=== PATIENT | male | born 1960 | race Hispanic/Latino ===

== ENCOUNTER 2020-05-14 19:33 | Emergency (ER) | payer BC ==
[~2020-05-14] VITALS: Ht 177.8 cm; Wt 75.0 kg
[~2020-05-14 19:33] MED LIST: AMOXICILLIN250 M1 PO; CLARITHROMYCIN250 MG PO; DOC-Q-LAX1 TAB PO; LANSOPRAZOLE30 MG PO; OXYCODONE HCL5 MG PO
[2020-05-14 21:29] LABS: IMMATURE GRANULOCYTES 0.2 % (0.0-5.0); MEAN CORPUSCULAR HGB 29.8 pG CALC (26.0-32.0); MEAN CORPUSCULAR HGB CONC 33.5 g/dL CAL (32.0-36.0); NEUT# 5.28 thou/uL (1.82-7.42); RED BLOOD COUNT 5.26 mill/uL (4.70-6.10); RED CELL DISTRI WIDTH 12.6 % (11.5-15.5)
[2020-05-14 21:30] LABS: HEMATOCRIT 46.8 % (39.0-50.0); HEMOGLOBIN 15.7 g/dl (14.0-18.0); URINE BLOOD DIPSTICK TRACE-LYSED (NEGATIVE); URINE COLOR YELLOW; URINE GLUCOSE - DIPSTICK NEGATIVE (NEGATIVE); URINE KETONE 40 mg/dL (NEGATIVE); URINE LEUK ESTERASE NEGATIVE (NEGATIVE); URINE NITRITE - DIPSTICK NEGATIVE (Negative); URINE PH 8.5 (4.5-8.0); URINE PROTEIN - DIPSTICK 30 mg/dL (NEG-TRACE); URINE SPECIFIC GRAVITY 1.015
[2020-05-14 21:43] LABS: URINE BILIRUBIN - DIPSTICK NEGATIVE (NEGATIVE)
[2020-05-14 21:44] LABS: URINE RBC 0-2 RBC/hpf (0-5); URINE WBC 0-2 WBC/hpf (0-5)
[2020-05-14 22:05] LABS: ALBUMIN 3.8 g/dL (3.2-5.0); ALKALINE PHOSPHATASE 79 u/l (38-126); AMYLASE 59 u/l (30-110); BUN 8 mg/dL (9-20); BUN/CREATININE RATIO 14 (12-20 (CALC)); CHLORIDE 95 mmol/l (95-108); CREATININE 0.6 mg/dL (0.7-1.3); GFR > 60 ML/MIN (>=60 (CALC)); GFR FOR AFR.AMER. > 60 ML/MIN (>=60 (CALC)); LIPASE 70 u/l (23-300); POTASSIUM 3.6 mmol/l (3.5-5.1); SODIUM 137 mmol/l (137-146); TOTAL PROTEIN 7.1 g/dL (6.3-8.2)
[2020-05-14 22:10] LABS: ANION GAP 8 (6-22 (CALC)); BILIRUBIN, TOTAL 0.4 mg/dL (0.0-1.4); CARBON DIOXIDE 38 mmol/l (22-30); SGOT/AST 263 u/l (17-59)
[2020-05-14 22:16] LABS: MYOGLOBIN 25 ng/mL (0 - 121)
[2020-05-14] MEDS ORDERED: PHENERGAN25 MG RE (22:47)
[2020-05-14 23:22] VITALS: BP 158/88
== END 2020-05-14 23:22 | disposition home or self-care (01) | DRG 179 ==
LOC: ED 19:33
PROVIDERS: Family Medicine
DX: U07.1 COVID-19 (principal); R11.2 Nausea with vomiting, unspecified; R52 Pain, unspecified